=== PATIENT | male | born 1995 | race Caucasian/White ===

== ENCOUNTER 2019-10-13 21:21 | Emergency (ER) | payer BC ==
[2019-10-13] MEDS ORDERED: CEPHALEXIN 500 MG CAPSULE PO STA ×2 (21:40→22:34)
--- NOTE | 2019-10-13 21:41 | Emergency Department Record ---
History of Present Illness - General Chief complaint: Extremity Problem Stated complaint: RT INDEX SLAM IN CAR DOOR Time Seen by Provider: 10/13/19 21:37 Source: Patient Mode of Arrival: Ambulatory Limitations: No limitations - History of Present Illness Initial comments: 24 yo male presents with a right index finger injury that occurred 13 days ago. He slammed his finger in the car door. He has had pain and swelling since the injury. 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 The pain and swelling have not improved since the injury. He has had bloody drainage and some that looked more like pus. He stuck the area with a needle to promote the drainge. The nail is intact. No significant blood under the nail. No redness or streaking up the finger. Onset/Timin -: Week(s) Location: Right History of Same: No -: Yes Arthralgia Radiation: Distal Severity scale (1-10): 6 Quality: Aching Consistency: Constant Improves with: Nothing Worsens with: Nothing Associated Symptoms: Denies other symptoms - Related Data Previous Rx's Medication Instructions Recorded Cephalexin [Keflex] 500 mg PO TID #30 cap 10/13/19 Allergies Allergy/AdvReac Type Severity Reaction Status Date / Time No Known Drug Allergies Allergy Unverified 05/07/18 19:06 Travel Screening - Travel/Exposure Within Last 30 Days Have you traveled within the last 30 days?: No - Travel/Exposure Within Last Year Have you traveled outside the [place] in the last year?: No - Additonal Travel Details Have you been exposed to anyone with a communicable illness?: No - Travel Symptoms Symptom Screening: None Review of Systems Constitutional: Denies: Chills, Fever, Malaise, Weakness Eyes: Denies: Eye discharge ENT: Denies: Congestion, Throat pain Respiratory: Denies: Cough, Dyspnea, Wheezes Cardiovascular: Denies: Edema Endocrine: Denies: Fatigue, Polydipsia, Polyuria Gastrointestinal: Denies: Abdominal pain, Diarrhea, Nausea, Vomiting Genitourinary: Denies: Dysuria, Frequency, Hematuria Musculoskeletal: Reports: As per HPI, Arthralgia Skin: Denies: Bruising, Rash Neurological: Denies: Headache Psychiatric: Denies: Anxiety Hematological/Lymphatic: Denies: Easy bleeding, Easy bruising Past Medical History - SOCIAL HISTORY Smoking Status: Never smoker Alcohol Use: None Drug Use: None - RESPIRATORY Hx Respiratory Disorders: No - CARDIOVASCULAR Hx Cardio Disorders: No - NEURO Hx Neuro Disorders: No - GI Hx GI Disorders: No - Hx Genitourinary Disorders: No - ENDOCRINE Hx Endocrine Disorders: No - MUSCULOSKELETAL Hx Musculoskeletal Disorders: Yes Comment:: bursitis - PSYCH Hx Psych Problems: No - HEMATOLOGY/ONCOLOGY Hx Hematology/Oncology Disorders: No Family Medical History Any Significant Family History?: No Hx Diabetes: Mother Physical Exam - General General Appearance: Alert, Oriented x3, Cooperative, No acute distress Limitations: No limitations - Head Head exam: Atraumatic, Normal inspection - Eye Eye exam: Normal appearance - ENT ENT exam: Normal exam Ear exam: Normal external inspection Nasal Exam: Normal inspection Mouth exam: Normal external inspection - Neck Neck exam: Normal inspection - Cardiovascular Peripheral Pulses: 2+: Radial (R) - Rectal Rectal exam: Deferred - exam: Deferred - Extremities Extremities exam: negative: Normal inspection Image of Hand: 1 - mild swelling, scab abrasions, nail firmly intact, no abnormal warmth, no exsprissable pus but there is STS at the proximal nail suggestive of fluid, no subungual hematoma - Neurological Neurological exam: Alert, Oriented X3 - Psychiatric Psychiatric exam: Normal affect, Normal mood - Skin Skin exam: Abrasion Course Vital Signs 10/13/19 21:27 Temperature 98.5 F Pulse Rate [ 80 Pulse Ox Probe] Respiratory 20 Rate Blood Pressure 157/93 [Left Arm] Pulse Ox 100 - Reevaluation(s) Reevaluation #1: 10/13/19 22:02 The XR report was reviewed No fracture or dislocation 10/13/19 22:13 I discussed with the patient that there is likely infection at the base of the nail in the soft tissue. I recommend I and D. I explained the risks and benefits Procedure: Incision and Drainage of a right index paronychia Betadine Prep Lidocaine Plain digital block with 7:3 ratio mix with bupivicaine Sharp scissor was used to make an 3 mm opening in the nail fold The cavity was easily found, no immediate pus, only bloody drainage The patient tolerated the procedure well The nail seems fairly adherent to the nail bed. We discussed options of removal vs watch and wait as it heals. We decided to allow it to heal in place. he was given a number for hand follow up if needed. He was advised he can return anytime to the ER as well for a recheck He was sent home with a Keflex prescription Disposition Disposition: Discharge Clinical Impression: Paronychia Finger contusion Qualifiers: Encounter type: initial encounter Finger: index finger Damage to nail status: without damage Laterality: unspecified laterality Qualified Code(s): S60.029A - Contusion of unspecified index finger without damage to nail, initial encounter Disposition: Home, Self-Care Condition: (1) Good Instructions: Paronychia (ED), Crush Injury (ED) Additional Instructions: You may soak the finger in warm soapy water twice daily and continue to drain any fluid Return or be seen if worse Take the antibiotic until gone Prescriptions: Cephalexin [Keflex] 500 mg PO TID #30 cap Referrals: FELIPE CAMERON M.D. [MEDICAL DOCTOR] - Forms: Patient Portal Access Time of Disposition: 22:25 Quality - Quality Measures Quality Measures: N/A - Blood Pressure Screening Does Patient Have Any of the Following: No Blood Pressure Classification: Hypertensive Reading Systolic Measurement: 157 Diastolic Measurement: 93 Screening for High Blood Pressure: < Pre-Hypertensive BP, F/U Documented > [[id number]] Pre-Hypertensive Follow-up Interventions: Referral to alternative/primary care provider.
--- NOTE | 2019-10-13 21:57 | RADIOLOGY REPORT ---
EXAMINATION: Right index finger, Minimum Two Views EXAM DATE: 10/13/2019 9:51 PM INDICATION: closed in a car door 13 days ago ENCOUNTER: Initial FINDINGS: The examination shows no evidence of fracture or dislocation; however, soft tissue swelling is noted. IMPRESSION: Soft tissue swelling. Dictated by: Franklin Bill MD on 10/13/2019 9:53 PM. .
[2019-10-13] MEDS ORDERED: Diph,Pert(Acell),Tet Vac 0.5 ML SYR IM ONE (22:34)
== END 2019-10-13 22:57 | disposition home or self-care (01) ==
LOC: ER 21:21
DX: L03.011 Cellulitis of right finger (principal); S60.021A Contusion of right index finger without damage to nail, initial encounter; W22.8XXA Striking against or struck by other objects, initial encounter
CPT/HCPCS: 10060; 73140; 90715; 96372; 99284